=== PATIENT | male | born 1985 | race Caucasian/White ===

== ENCOUNTER 2016-12-25 20:45 | Emergency (ER) | payer MEDICAID ==
[2016-12-25 21:10] VITALS: BP 150/71
[2016-12-25] MEDS ORDERED: Oseltamivir 75 MG Cap PO ONE (22:05)
--- NOTE | 2016-12-25 22:09 | EDM.PDOC ---
ED HPI GENERAL MEDICAL PROBLEM - General Chief Complaint: Fever Stated Complaint: 103.4 TEMP Time Seen by Provider: 12/25/16 21:59 Source of Information: Reports: Patient, RN notes reviewed History Limitations: Reports: No limitations - History of Present Illness INITIAL COMMENTS - FREE TEXT/NARRATIVE: 31-year-old male presents emergency department day complaint of fever and body aches he did have a positive exposure to influenza B last week he's been ill for about 24 hours - Related Data Allergies Allergy/AdvReac Type Severity Reaction Status Date / Time No Known Allergies Allergy Verified 09/05/16 06:43 Home Meds: Home Meds Acetaminophen/oxyCODONE [Percocet 325-5 MG] 1 - 2 tab PO Q4H PRN #50 tablet 12/18 [Rx] Docusate Sodium [Colace] 100 mg PO BID #100 cap 09/06/16 [Rx] Pantoprazole [Protonix] 40 mg PO BEDTIME #90 tab.cr 09/06/16 [Rx] Past Medical History HEENT History: Reports: Impaired vision Gastrointestinal History: Reports: GERD Musculoskeletal History: Reports: Fracture Oncologic (Cancer) History: Reports: Colon, Other (see below) Other Oncologic History: tumor : non-malignant - Infectious Disease History Infectious Disease History: Reports: Chicken pox - Past Surgical History HEENT Surgical History: Reports: Oral surgery GI Surgical History: Reports: Colon, Hernia, abdominal, Hernia repair/other, Lysis of adhesions, Kristina fundoplication, Other (see below) Other GI Surgeries/Procedures: lap kristina 10/04/2015. 11 hernia repairs. 5 adhesions. colectomy 8 inches large intestine Musculoskeletal Surgical History: Reports: ORIF, Other (see below) Other Musculoskeletal Surgeries/Procedures:: left ankle Oncologic Surgical History: Reports: Other (see below) Other Oncologic Surgeries/Procedures: Benign pelvic tumor removal Social & Family History - Tobacco Use Smoking Status *Q: Current Every Day Smoker Years of Tobacco use: 16 Packs/Tins Daily: 1 Used Tobacco, but Quit: No Month Tobacco Last Used: Second Hand Smoke Exposure: No - Caffeine Use Caffeine Use: Reports: Soda - Alcohol Use Days Per Week of Alcohol Use: 3 Number of Drinks Per Day: 3 Total Drinks Per Week: 9 - Recreational Drug Use Recreational Drug Use: No ED ROS GENERAL - Review of Systems Review Of Systems: See Below Constitutional: Reports: fever, chills HEENT: Reports: No symptoms Respiratory: Reports: No Symptoms Cardiovascular: Reports: No symptoms GI/Abdominal: Reports: No symptoms : Reports: no symptoms Musculoskeletal: Reports: muscle pain ED EXAM, GENERAL - Physical Exam Exam: See Below Exam Limited By: No limitations General Appearance: alert, WD/WN, no apparent distress Respiratory/Chest: no respiratory distress, lungs clear, normal breath sounds, no accessory muscle use Cardiovascular: regular rate, rhythm, no murmur Course - Vital Signs Last Recorded V/S: Last Vital Signs Temp 99.3 F 12/25/16 21:09 Pulse 81 12/25/16 21:09 Resp 20 12/25/16 21:09 BP 150/71 H 12/25/16 21:09 Pulse Ox 95 12/25/16 21:09 Departure - Departure Time of Disposition: 22:08 Disposition: Home, Self-Care 01 Condition: good Clinical Impression: Influenza Forms: ED Department Discharge Additional Instructions: Take full course of medication, Please followup with your primary care provider in 3-5 days if not better, please call return to the emergency department with worsening of symptoms. - Assessment/Plan Plan: Assessment Acuity = acute Site and laterality = fever, chills, body ache Etiology = probable influenza B Manifestations = none Location of injury = home Lab values = none Plan Because of his exposure elected to treat empirically with Tamiflu 75 mg by mouth daily 1 doses given now prophylactic medication also given 2 family members Patient was in agreement with the plan all questions were answered, they were instructed to return to the emergency department or call for worsening symptoms. This note was dictated using [employer] voice recognition software please call with any questions.
== END 2016-12-25 22:15 | disposition home or self-care (01) ==
LOC: JP.ED 20:45
DX: J11.1 Influenza due to unidentified influenza virus with other respiratory manifestations (principal); K21.9 Gastro-esophageal reflux disease without esophagitis; F17.210 Nicotine dependence, cigarettes, uncomplicated; Z98.890 Other specified postprocedural states
CPT/HCPCS: 99283; A9270

== ENCOUNTER 2017-08-19 19:27 | Emergency (ER) | payer MEDICAID ==
[2017-08-19 19:58] VITALS: BP 136/75
[2017-08-19] MEDS ORDERED: Dexamethasone 4 MG/ML SDV PO ONE (20:10)
--- NOTE | 2017-08-19 20:15 | EDM.PDOC ---
ED HPI GENERAL MEDICAL PROBLEM - General Chief Complaint: ENT Problem Stated Complaint: SINUSES,THROAT Time Seen by Provider: 08/19/17 20:02 Source of Information: Reports: Patient, Family, RN Notes Reviewed History Limitations: Reports: No Limitations - History of Present Illness INITIAL COMMENTS - FREE TEXT/NARRATIVE: 32-year-old gentleman presents to emergency department today complaint of sore throat and sinus congestion, he was treated for sinus infection approximately one month ago with antibiotics he is not sure if it improved his symptoms or not. This particular event has been going on for 4 days he complains of sore throat postnasal drip no fevers and ongoing congestion sore throat Pain Score (Numeric/FACES): 7 - Related Data Allergies Allergy/AdvReac Type Severity Reaction Status Date / Time No Known Allergies Allergy Verified 08/19/17 19:40 Past Medical History HEENT History: Reports: Impaired Vision Gastrointestinal History: Reports: GERD Musculoskeletal History: Reports: Fracture, Other (See Below) Other Musculoskeletal History: left ankle Psychiatric History: Reports: ADHD Oncologic (Cancer) History: Reports: Colon, Other (See Below) Other Oncologic History: tumor : non-malignant - Infectious Disease History Infectious Disease History: Reports: Chicken Pox - Past Surgical History HEENT Surgical History: Reports: Oral Surgery GI Surgical History: Reports: Colon, Hernia, Abdominal, Hernia Repair/Other, Lysis of Adhesions, Osman Fundoplication, Other (See Below) Other GI Surgeries/Procedures: 8 inches of large intestine removed due to benign tumor Musculoskeletal Surgical History: Reports: ORIF Social & Family History - Tobacco Use Smoking Status *Q: Current Every Day Smoker Years of Tobacco use: 15 Packs/Tins Daily: 1.5 Used Tobacco, but Quit: No Month Tobacco Last Used: Second Hand Smoke Exposure: No - Caffeine Use Caffeine Use: Reports: Soda - Alcohol Use Days Per Week of Alcohol Use: 3 Number of Drinks Per Day: 3 Total Drinks Per Week: 9 - Recreational Drug Use Recreational Drug Use: Yes Drug Use in Last 12 Months: Yes Recreational Drug Type: Reports: Marijuana/Hashish Recreational Drug Use Frequency: Daily ED ROS ENT - Review of Systems Review Of Systems: See Below Constitutional: Denies: Fever, Chills HEENT: Reports: Throat Pain, Throat Swelling Respiratory: Reports: Cough Cardiovascular: Reports: No Symptoms GI/Abdominal: Reports: No Symptoms : Reports: No Symptoms ED EXAM, ENT - Physical Exam Exam: See Below Exam Limited By: No Limitations General Appearance: Alert, WD/WN, No Apparent Distress Ears: Normal External Exam, Normal Canal, Hearing Grossly Normal, Normal TMs Nose: Normal Inspection, Normal Mucousa, No Blood Mouth/Throat: Normal Inspection, Normal Gums, Normal Lips, Normal Oropharynx, Normal Teeth Head: Atraumatic, Normocephalic Neck: Normal Inspection, Supple, Non-Tender, Full Range of Motion Respiratory/Chest: No Respiratory Distress, Lungs Clear, Normal Breath Sounds, No Accessory Muscle Use Cardiovascular: Regular Rate, Rhythm, No Murmur Course - Vital Signs Last Recorded V/S: Last Vital Signs Temp 97.1 F 08/19/17 19:59 Pulse 84 08/19/17 19:59 Resp 17 08/19/17 19:59 BP 136/75 08/19/17 19:59 Pulse Ox 98 08/19/17 19:59 - Orders/Labs/Meds Meds: Medications Discontinued Medications Generic Name Dose Route Start Last Admin Trade Name Mark PRN Reason Stop Dose Admin Dexamethasone 8 mg 08/19/17 20:10 Dexamethasone PO 08/19/17 20:11 ONETIME ONE Departure - Departure Time of Disposition: 20:14 Disposition: Home, Self-Care 01 Condition: Good Clinical Impression: Sinusitis Qualifiers: Sinusitis location: maxillary Chronicity: acute Recurrence: recurrent Qualified Code(s): J01.01 - Acute recurrent maxillary sinusitis - Discharge Information Referrals: PCP,None [Primary Care Provider] - Additional Instructions: Try the Karmen Pot in combination with Claritin-D, Please followup with your primary care provider in 3-5 days if not better, please call return to the emergency department with worsening of symptoms. - Assessment/Plan Plan: Assessment Acuity = acute Site and laterality = sinusitis Etiology = probable viral cause Manifestations = pharyngitis Location of injury = Home Lab values = none Plan provided dexamethasone elixir 8 mg 1, recommend trying the Herald pot with Claritin-D follow-up with primary care 3-5 days for reevaluation Patient was in agreement with the plan all questions were answered, they were instructed to return to the emergency department or call for worsening symptoms. This note was dictated using [employer] voice recognition software please call with any questions.
== END 2017-08-19 20:21 | disposition home or self-care (01) ==
LOC: JP.ED 19:27
DX: J01.01 Acute recurrent maxillary sinusitis (principal); F17.210 Nicotine dependence, cigarettes, uncomplicated
CPT/HCPCS: 99283; J1100

== ENCOUNTER 2018-03-26 21:05 | Emergency (ER) | payer MEDICAID ==
[2018-03-26 22:24] VITALS: BP 131/76
--- NOTE | 2018-03-26 23:06 | EDM.PDOC ---
ED HPI GENERAL MEDICAL PROBLEM - General Chief Complaint: Respiratory Problem Stated Complaint: STUFFY NOSE Time Seen by Provider: 03/26/18 23:03 Source of Information: Reports: Patient, Family, RN Notes Reviewed History Limitations: Reports: No Limitations - History of Present Illness INITIAL COMMENTS - FREE TEXT/NARRATIVE: 32-year-old gentleman presents to the emergency department today with complaint of shortness of breath and cough he has been ill for about 4 days no fevers did have some exposure in a damp hotel room which may be contributing to the cause - Related Data Allergies Allergy/AdvReac Type Severity Reaction Status Date / Time bee venom protein (honey bee) Allergy Anaphylactic Verified 01/14/18 11:44 Shock Home Meds: Home Meds NK [No Known Home Meds] 01/14/18 [History] Past Medical History HEENT History: Reports: Impaired Vision Gastrointestinal History: Reports: GERD Musculoskeletal History: Reports: Fracture, Other (See Below) Other Musculoskeletal History: left ankle. L shoulder pain Psychiatric History: Reports: ADHD Oncologic (Cancer) History: Reports: Colon, Other (See Below) Other Oncologic History: tumor : non-malignant - Infectious Disease History Infectious Disease History: Reports: Chicken Pox - Past Surgical History HEENT Surgical History: Reports: Oral Surgery GI Surgical History: Reports: Colon, Hernia, Abdominal, Hernia Repair/Other, Lysis of Adhesions, Osman Fundoplication, Other (See Below) Other GI Surgeries/Procedures: 8 inches of large intestine removed due to benign tumor Musculoskeletal Surgical History: Reports: ORIF Dermatological Surgical History: Reports: Other (See Below) Social & Family History - Caffeine Use Caffeine Use: Reports: Coffee, Energy Drinks, Soda, Tea ED ROS GENERAL - Review of Systems Review Of Systems: See Below Constitutional: Denies: Fever, Chills HEENT: Reports: No Symptoms Respiratory: Reports: Shortness of Breath, Cough, Sputum Cardiovascular: Reports: Dyspnea on Exertion GI/Abdominal: Reports: No Symptoms ED EXAM, GENERAL - Physical Exam Exam: See Below Exam Limited By: No Limitations General Appearance: Alert, WD/WN, No Apparent Distress Respiratory/Chest: No Accessory Muscle Use, Rhonchi, Wheezing Cardiovascular: Regular Rate, Rhythm, No Murmur Course - Vital Signs Last Recorded V/S: Last Vital Signs Temp 97.5 F 03/26/18 22:23 Pulse 107 H 03/26/18 22:23 Resp 15 03/26/18 22:23 BP 131/76 03/26/18 22:23 Pulse Ox 95 03/26/18 22:23 Departure - Departure Time of Disposition: 23:06 Disposition: Home, Self-Care 01 Condition: Good Clinical Impression: Bilateral wheezing - Discharge Information Referrals: PCP,None [Primary Care Provider] - Additional Instructions: Take full course of prednisone, use albuterol inhaler as needed for shortness of breath, Please followup with your primary care provider in 3-5 days if not better, please call return to the emergency department with worsening of symptoms. - Assessment/Plan Plan: Assessment Acuity = acute Site and laterality = wheezing complicated gentleman with known history of COPD concern for exacerbation Etiology = probably viral etiology Manifestations = dyspnea Location of injury = Home Lab values = none Plan Elected to treat empirically with prednisone 20 mg once day 5 days, albuterol inhaler as needed for shortness breath follow-up primary care 3-5 days if no improvement This note was dictated using [employer] voice recognition software please call with any questions on syntax or grammar.
== END 2018-03-26 23:33 | disposition home or self-care (01) ==
LOC: JP.ED 21:05
DX: R06.2 Wheezing (principal); Z91.030 Bee allergy status
CPT/HCPCS: 99285

== ENCOUNTER 2018-05-10 07:03 | Inpatient (IN) | payer MEDICAID ==
[~2018-05-10 07:03] MED LIST: Acetaminophen 500 MG Tab PO ONE; Bupivacaine 0.5%/EPINEPHrine 1:200,000 50 ML MDV ONE; Celecoxib 200 MG Cap PO ONE; Dextrose 5%-Lactated Ringers 1,000 ML IV SCH; Gabapentin 300 MG Cap PO ONE; Meropenem 500 MG SDV ONE
[2018-05-10] MEDS ORDERED: fentaNYL 250 MCG/5 ML SDV ONE ×2 (07:12→08:57)
[2018-05-10] MEDS ORDERED: Ondansetron 4 MG/2 ML SDV ONE (07:14)
[2018-05-10] MEDS ORDERED: Propofol 200 MG/20 ML SDV ONE (07:14)
[2018-05-10] MEDS ORDERED: Dexamethasone 4 MG/ML SDV ONE (07:14)
[2018-05-10] MEDS ORDERED: Glycopyrrolate 0.2 MG/ML 5 ML MDV ONE (07:14)
[2018-05-10] MEDS ORDERED: Rocuronium 50 MG/5 ML Vial ONE (07:14)
[2018-05-10] MEDS ORDERED: Neostigmine Methylsulfate 1 MG/ML 5 ML Syringe ONE (07:14)
[2018-05-10] MEDS ORDERED: HYDROmorphone/Normal Saline 15 MG/30 ML PCA IV PRN (07:26)
[2018-05-10] MEDS ORDERED: Naloxone 0.4 MG/ML SDV IVPUSH PRN (07:26)
[2018-05-10] MEDS ORDERED: Albuterol/Ipratropium 3.0-0.5 MG/3 ML Neb Soln NEB ONE (08:20)
[2018-05-10] MEDS ORDERED: ceFAZolin 2 GM in Premix Bag 1 BAG IV ONE (08:45)
[2018-05-10] MEDS ORDERED: Ketamine 500 MG/5 ML MDV IV SCH (09:00)
[2018-05-10] MEDS ORDERED: Ropivacaine 39 ML, Dexamethasone 8 MG, EPINEPHrine 0.4 MG, Sodium Chloride 0.9% 38.6 ML NERVRT SCH ×4 (09:00)
[2018-05-10] MEDS ORDERED: Linezolid 200 MG/100 ML Bag IRR ONE (09:24)
[2018-05-10] MEDS ORDERED: Ketorolac 60 MG/2 ML SDV IM ONE (10:08)
[2018-05-10] MEDS ORDERED: Naloxone 0.4 MG/ML SDV IV PRN (11:53)
[2018-05-10] MEDS ORDERED: Ondansetron 4 MG/2 ML SDV IVPUSH PRN (12:21)
[2018-05-10] MEDS ORDERED: Albuterol/Ipratropium 3.0-0.5 MG/3 ML Neb Soln INH PRN (13:00)
[2018-05-10] MEDS ORDERED: Nicotine 21 MG/24 Hr Patch TRDERM SCH (13:00)
[2018-05-10] MEDS: Dextrose 5%-Lactated Ringers 1,000 ML IV SCH ×2 (14:03→21:06)
[2018-05-10] MEDS: Albuterol/Ipratropium 3.0-0.5 MG/3 ML Neb Soln INH SCH ×2 (14:58→21:28)
[2018-05-10] MEDS: ceFAZolin 2 GM in Premix Bag 1 BAG IV SCH ×2 (15:58→23:18)
[2018-05-10] MEDS: Ibuprofen 600 MG Tab PO SCH ×2 (16:01→21:27)
[2018-05-10] MEDS ORDERED: diphenhydrAMINE 50 MG/ML SDV IVPUSH PRN (21:23)
[2018-05-10] MEDS: Acetaminophen/oxyCODONE 325-5 MG Tab PO PRN (21:26)
[2018-05-11] MEDS: Acetaminophen/oxyCODONE 325-5 MG Tab PO PRN ×2 (02:35→07:38)
[2018-05-11] MEDS: Ibuprofen 600 MG Tab PO SCH (03:34)
[2018-05-11] MEDS: Dextrose 5%-Lactated Ringers 1,000 ML IV SCH (05:08)
[2018-05-11] MEDS: Albuterol/Ipratropium 3.0-0.5 MG/3 ML Neb Soln INH SCH (07:17)
[2018-05-11] MEDS: ceFAZolin 2 GM in Premix Bag 1 BAG IV SCH (07:39)
[2018-05-11 08:04] VITALS: BP 117/62
[2018-05-11] MEDS ORDERED: Magnesium Hydroxide 400 MG/5 ML Susp 30 ML Cup PO PRN (08:52)
--- NOTE | 2018-05-13 09:02 | DISCH ---
FINAL DIAGNOSES: 1. Recurrent incarcerated incisional hernia. 2. Intraperitoneal foreign bodies (tags). SECONDARY DIAGNOSIS: Gastroesophageal reflux disease, status post previous Osman fundoplication. OPERATIVE PROCEDURES: Done on 05/10/2018, limited laparotomy with: 1. Repair of recurrent incarcerated incisional hernia with mesh. 2. Removal of intraperitoneal foreign bodies (tags). SUMMARY: This is a 32-year-old, presenting with a recurrent incisional hernia located in the epigastric area. On the day of admission, the patient underwent exploration and repair of the hernia. Some intraperitoneal tags were present, which were removed concurrently. Postoperatively, he has had no major problems, tolerating a regular diet, and will be sent home with Percocet 5/325 one to two tablets q.4 h. p.r.n. pain #50 and 2 doses of milk of magnesia to take p.r.n. He has nicotine patch on, which he will be instructed to remove when he starts smoking again. The patient has had multiple recurrences of these incisional hernias, and he will be instructed to avoid lifting, pushing, pulling greater than 10 pounds for 6 weeks to try to allow the muscular layers to heal well. He will be following up with Lyndsay Brown at [facility] on 05/20/2018.
--- NOTE | 2018-05-17 13:44 | OR ---
DATE OF PROCEDURE: 05/10/2018 PREOPERATIVE DIAGNOSIS: Recurrent incisional hernia. POSTOPERATIVE DIAGNOSES: 1. Recurrent incarcerated incisional hernia. 2. Several intraabdominal foreign bodies (previous titanium tacks). OPERATIVE PROCEDURES: 1. Limited laparotomy with;. a. Repair of recurrent incarcerated incisional hernia with mesh (22131, [id number]). 2. Removal of intraperitoneal foreign bodies (titanium tacks) (72752). ANESTHESIA: General. CLASSIFICATION INSPECTOR: Lyndsay Brown PA-C. INDICATION FOR PROCEDURE: The patient presents with symptomatic recurrent incisional hernia. The plan is to proceed with repair of this using a mesh technique. Potential risks including bleeding, infection, injury to underlying viscera, problems with mesh becoming infected, or the hernia recurring were all reviewed, and the patient wishes to proceed. DETAILS OF PROCEDURE: The patient was taken to the operating room and after general endotracheal anesthesia was induced, bilateral subcostal transversus abdominis plane blocks were placed using continuous ultrasound guidance. Following this, the abdomen was prepped and draped. Elizabeth catheter was inserted, which was removed at the end of the procedure. The upper aspect of the upper midline incision was then reused and carried down through the skin and subcutaneous tissue. The area of herniation was then identified. There was more or less intact mesh underneath this, but this had become quite mobile. This was then opened up. It had some incarcerated component to it with some omentum and falciform ligament adherent within the hernia. This mesh was then tightened up with a #2-0 Prolene stitch. During the course of dissection of this mesh, several intraperitoneal titanium tacks were present, which were felt to be potentially problematic over time, and these were removed as they were encountered. A plane of polypropylene mesh was then placed underneath the defect and sutured to the underside of the abdominal wall circumferentially with 0 Vicryl sutures. Once this was completed, the primary fascia closure was completed with a #2 Vicryl stitch. The subcutaneous tissue was then closed with 2 layers of 3-0 Vicryl stitch and skin with rancho. The incision was then anesthetized with some 0.5% Marcaine as well, and the patient was taken to the recovery room in a satisfactory condition. Physician special ed assistant, Lyndsay Brown, played an essential role in assisting in this case, helping to position the patient, retract structures as needed, as well as suturing and cutting sutures when indicated. Her presence improved patient safety and decreased the operative time. German Palomares MD /[id number]
== END 2018-05-11 08:57 | disposition home or self-care (01) | DRG 355 ==
LOC: JP.SDS 07:03 → EDSTATUS 09:00 → JP.MS 10:00 → JP.2SS 10:05
PROVIDERS: ADMIT Surgery; ATTEND Surgery
PROC: 0WUF0JZ Supplement Abdominal Wall with Synthetic Substitute, Open Approach (ICD-10-PCS; principal; 2018-05-10)
PROC: 0JC80ZZ Extirpation of Matter from Abdomen Subcutaneous Tissue and Fascia, Open Approach (ICD-10-PCS; 2018-05-10)
PROC: 3E0T3BZ Introduction of Anesthetic Agent into Peripheral Nerves and Plexi, Percutaneous Approach (ICD-10-PCS; 2018-05-10)
DX: K43.0 Incisional hernia with obstruction, without gangrene (principal); L91.8 Other hypertrophic disorders of the skin; K21.9 Gastro-esophageal reflux disease without esophagitis; M79.5 Residual foreign body in soft tissue
CPT/HCPCS: 88300; 88302; 94640; 94762; A9270-GY; C1781; J0171; J0690; J1100; J1170; J1200; J1885; J2020; J2185; J2405; J2704; J2710; J2795; J3010; J3490; J7030; J7042; J7050; J7620-GY

== ENCOUNTER 2018-11-28 07:49 | Inpatient (IN) | payer MEDICAID ==
[2018-11-28] MEDS ORDERED: Dextrose 5%-Lactated Ringers 1,000 ML IV SCH (08:15)
[2018-11-28] MEDS ORDERED: Bupivacaine 0.5% 50 ML MDV ONE (08:39)
[2018-11-28] MEDS ORDERED: Lidocaine 1% with EPINEPHrine 1:100,000 50 ML MDV ONE (08:40)
[2018-11-28] MEDS ORDERED: fentaNYL 100 MCG/2 ML SDV ONE ×2 (08:40→11:56)
[2018-11-28] MEDS ORDERED: Propofol 200 MG/20 ML SDV ONE ×2 (08:41→10:17)
[2018-11-28] MEDS ORDERED: Midazolam 1 MG/ML 2 ML SDV ONE (08:41)
[2018-11-28] MEDS ORDERED: ceFAZolin 2 GM in Premix Bag 1 BAG IV ONE (09:00)
[2018-11-28] MEDS ORDERED: Succinylcholine 200 MG/10 ML MDV ONE ×2 (10:35→12:10)
[2018-11-28] MEDS ORDERED: Dexamethasone 4 MG/ML SDV ONE (10:35)
[2018-11-28] MEDS ORDERED: Glycopyrrolate 0.2 MG/ML 5 ML MDV ONE (10:35)
[2018-11-28] MEDS ORDERED: fentaNYL 250 MCG/5 ML SDV ONE (10:35)
[2018-11-28] MEDS ORDERED: Ondansetron 4 MG/2 ML SDV ONE (10:35)
[2018-11-28] MEDS ORDERED: Rocuronium 50 MG/5 ML Vial ONE ×2 (10:35→10:59)
[2018-11-28] MEDS ORDERED: Neostigmine Methylsulfate 1 MG/ML 5 ML Syringe ONE ×2 (10:35→10:59)
[2018-11-28] MEDS ORDERED: Ropivacaine 38 ML, Dexamethasone 8 MG, EPINEPHrine 0.4 MG, Sodium Chloride 0.9% 39.6 ML NERVRT SCH ×4 (11:00)
[2018-11-28] MEDS ORDERED: Atropine 0.1 MG/ML 10 ML Syringe ONE (11:00)
[2018-11-28] MEDS ORDERED: Meropenem 500 MG SDV ONE (11:03)
[2018-11-28] MEDS: Meropenem 500 MG SDV ONE ×2 (11:11→11:38)
[2018-11-28] MEDS ORDERED: Linezolid 600 MG in Premix Bag 1 BAG IV ONE (11:15)
[2018-11-28] MEDS ORDERED: Labetalol 20 MG/4 ML Syringe ONE (12:08)
[2018-11-28] MEDS ORDERED: Naloxone 0.4 MG/ML SDV IVPUSH PRN (12:12)
[2018-11-28] MEDS ORDERED: Naloxone 0.4 MG/ML SDV IV PRN (12:14)
[2018-11-28] MEDS: HYDROmorphone/Normal Saline 15 MG/30 ML PCA IV PRN (12:20)
[2018-11-28] MEDS: Cyclobenzaprine 10 MG Tab PO PRN (14:01)
[2018-11-28] MEDS: hydrOXYzine HCl 100 MG/2 ML SDV IM PRN ×2 (14:01→22:19)
[2018-11-28] MEDS: Dextrose 5%-Lactated Ringers 1,000 ML IV SCH ×2 (15:25→21:23)
[2018-11-28] MEDS: Meropenem 500 MG in Sodium Chloride 0.9% 50 ML IV SCH ×2 (16:08→21:23)
[2018-11-28] MEDS: Pantoprazole 40 MG Vial IV SCH (16:08)
[2018-11-28] MEDS: Acetaminophen 500 MG Tab PO SCH ×2 (17:45→23:04)
[2018-11-28] MEDS: Linezolid 600 MG in Premix Bag 1 BAG IV SCH (22:02)
[2018-11-29] MEDS: Cyclobenzaprine 10 MG Tab PO PRN ×3 (01:56→23:06)
[2018-11-29] MEDS: Meropenem 500 MG in Sodium Chloride 0.9% 50 ML IV SCH ×4 (03:43→22:25)
[2018-11-29] MEDS: Dextrose 5%-Lactated Ringers 1,000 ML IV SCH (05:29)
[2018-11-29] MEDS: Acetaminophen 500 MG Tab PO SCH ×4 (05:31→23:06)
[2018-11-29] MEDS: HYDROmorphone/Normal Saline 15 MG/30 ML PCA IV PRN ×2 (07:03→22:38)
[2018-11-29] MEDS ORDERED: Tap Block 1 ML BAG NERVRT SCH (07:30)
--- NOTE | 2018-11-29 08:12 | PN ---
DATE OF SERVICE: 11/29/2018 SUBJECTIVE: Chato is postoperative day #1. He states pain is controlled. His biggest concern is that he is hungry, would like to eat. REVIEW OF SYSTEMS: Remainder of review of systems negative for any pertinent positives and negatives. OBJECTIVE: GENERAL: Chato Mackenzie is a 33-year-old male. Alert, orientated. VITAL SIGNS: TPR 98.1, 75, 16, blood pressure 116/76. HEENT: Negative. NECK: Supple. HEART: Regular rate and rhythm. LUNGS: Clear. ABDOMEN: Dressings dry and intact. Abdominal binder is on. EXTREMITIES: Without peripheral edema. ASSESSMENT: Exploratory laparotomy with: 1. Removal of intraabdominal mesh. 2. Debridement of effusion around abscess. 3. Drainage of intraabdominal subcutaneous abscess. 4. Small-bowel resection. 5. Placement of Vicryl mesh. Date of surgery: 11/28/2018. Surgeon: German Palomares MD. PLAN: 1. Schedule and have consent signed for delayed primary closure in a.m., Sunday11/30/2018, IV, local sedation and tap block. German Palomares MD. N.p.o. after midnight. 2. Full liquid diet. 3. Decrease IV to 100 mL per hour. 4. N.p.o. after midnight. 5. We will evaluate p.r.n. or in a.m. Lyndsay Brown PA-C /[id number]
[2018-11-29] MEDS: Linezolid 600 MG in Premix Bag 1 BAG IV SCH ×2 (11:52→23:06)
[2018-11-29] MEDS: diphenhydrAMINE 50 MG/ML SDV IVPUSH PRN (14:51)
[2018-11-29] MEDS: Pantoprazole 40 MG Vial IV SCH (14:58)
[2018-11-30] MEDS: diphenhydrAMINE 50 MG/ML SDV IVPUSH PRN (02:42)
[2018-11-30] MEDS: Meropenem 500 MG in Sodium Chloride 0.9% 50 ML IV SCH ×4 (03:32→21:10)
[2018-11-30] MEDS: Acetaminophen 500 MG Tab PO SCH ×3 (05:05→18:20)
[2018-11-30] MEDS: Dextrose 5%-Lactated Ringers 1,000 ML IV SCH ×2 (06:08→10:06)
[2018-11-30] MEDS ORDERED: Bupivacaine 0.5% 50 ML MDV ONE (06:40)
[2018-11-30] MEDS ORDERED: Lidocaine 1% with EPINEPHrine 1:100,000 50 ML MDV ONE (06:40)
[2018-11-30] MEDS ORDERED: Meropenem 500 MG SDV ONE (06:40)
[2018-11-30] MEDS ORDERED: Ropivacaine 38 ML, Dexamethasone 8 MG, EPINEPHrine 0.4 MG, Sodium Chloride 0.9% 39.6 ML NERVRT SCH ×4 (07:30)
[2018-11-30] MEDS ORDERED: Midazolam 1 MG/ML 2 ML SDV ONE (08:04)
[2018-11-30] MEDS ORDERED: Propofol 200 MG/20 ML SDV ONE ×2 (08:04→08:54)
[2018-11-30] MEDS ORDERED: fentaNYL 100 MCG/2 ML SDV ONE (08:04)
[2018-11-30] MEDS ORDERED: Sodium Chloride 0.9% 10 ML ONE (08:40)
[2018-11-30] MEDS ORDERED: Lidocaine 1% 2 ML ONE (08:40)
[2018-11-30] MEDS: Cyclobenzaprine 10 MG Tab PO PRN ×2 (11:06→17:35)
[2018-11-30] MEDS: Linezolid 600 MG in Premix Bag 1 BAG IV SCH ×2 (12:19→22:44)
[2018-11-30] MEDS: Bisacodyl 5 MG Tab PO SCH ×2 (14:42→20:42)
[2018-11-30] MEDS: Pantoprazole 40 MG Vial IV SCH (14:45)
[2018-11-30] MEDS: Acetaminophen/oxyCODONE 325-5 MG Tab PO PRN (21:23)
[2018-12-01] MEDS: Acetaminophen 500 MG Tab PO SCH (00:55)
[2018-12-01] MEDS: Acetaminophen/oxyCODONE 325-5 MG Tab PO PRN ×4 (01:05→13:58)
[2018-12-01] MEDS: Meropenem 500 MG in Sodium Chloride 0.9% 50 ML IV SCH (04:13)
[2018-12-01] MEDS: Ondansetron 4 MG/2 ML SDV IVPUSH PRN ×3 (04:34→21:51)
[2018-12-01] MEDS: hydrOXYzine HCl 100 MG/2 ML SDV IM PRN (04:36)
[2018-12-01] MEDS: Magnesium Hydroxide 400 MG/5 ML Susp 30 ML Cup PO SCH ×2 (09:04→21:55)
[2018-12-01] MEDS: Bisacodyl 5 MG Tab PO SCH ×2 (09:04→21:55)
[2018-12-01] MEDS: Linezolid 600 MG in Premix Bag 1 BAG IV SCH ×2 (11:10→22:01)
[2018-12-01] MEDS: Bisacodyl 10 MG Supp RECTAL PRN ×2 (11:17→13:47)
[2018-12-01] MEDS: Cyclobenzaprine 10 MG Tab PO PRN (11:17)
--- NOTE | 2018-12-01 12:39 | PN ---
DATE OF SERVICE: 12/01/2018 The patient has been afebrile with stable vital signs. The main problem is some cramping pain. As he has not moved his bowels, we will give him some additional bowel stimulation today. His cultures thus far are not growing anything, which would make it likely we are dealing with Staph epi type infection. I think we can discontinue the meropenem at this point, continue the Zyvox pending further C and S results. We will encourage decreased oral intake today until bowels get moving. Otherwise, maximize activity and work with pulmonary toilet. German Palomares MD /[id number]
--- NOTE | 2018-12-01 12:52 | PN ---
DATE OF SERVICE: 11/30/2018 The patient has been afebrile with stable vital signs. No major problems were noted, still not passing gas or had a bowel movement. We will begin some bowel stimulation today. Otherwise, keep him on just some sips of clear liquids. He did have closure of his abdominal wound today without incident. Cultures thus far are not growing anything out, but I suspect we may be dealing with Staph epi type infection in the graft with this organism being notoriously somewhat difficult to grow out. Anyway, we will continue to give the present antibiotics. If yet in another day or two, nothing grows out, we will simplify this down to some primarily staph coverage. German Palomares MD /[id number]
[2018-12-01] MEDS: Pantoprazole 40 MG Vial IV SCH (16:50)
[2018-12-01] MEDS: Metoclopramide 10 MG/2 ML SDV IV SCH ×2 (17:38→23:34)
[2018-12-01] MEDS: Dextrose 5%-Lactated Ringers 1,000 ML IV SCH (17:38)
[2018-12-01] MEDS: HYDROmorphone/Normal Saline 15 MG/30 ML PCA IV PRN (17:54)
[2018-12-02] MEDS ORDERED: Magnesium Hydroxide 400 MG/5 ML Susp 30 ML Cup PO PRN (01:29)
[2018-12-02] MEDS: Dextrose 5%-Lactated Ringers 1,000 ML IV SCH ×3 (05:17→23:09)
[2018-12-02] MEDS: Metoclopramide 10 MG/2 ML SDV IV SCH ×4 (05:25→23:12)
[2018-12-02] MEDS: Bisacodyl 5 MG Tab PO SCH ×2 (08:45→20:52)
[2018-12-02] MEDS ORDERED: Ciprofloxacin 500 MG Tab PO SCH (09:30)
[2018-12-02] MEDS: Ciprofloxacin in D5W 400 MG in Premix Bag 1 BAG IV SCH ×4 (10:28→20:52)
--- NOTE | 2018-12-02 10:43 | PN ---
DATE OF SERVICE: 12/02/2018 SUBJECTIVE: Chato has had less nausea, less bloating. He is passing some flatus. Vital signs have been stable and pain has been controlled. OBJECTIVE: GENERAL: Chato Mackenzie is a 33-year-old male. VITAL SIGNS: TPR is 98.1, 95, 18, blood pressure 143/99. HEENT: Negative. NECK: Supple. HEART: Regular rate and rhythm. LUNGS: Clear. ABDOMEN: Aquacel dressings on. No abdominal binder. EXTREMITIES: Without peripheral edema. ASSESSMENT: Exploratory laparotomy with: 1. Removal of intraperitoneal mesh. 2. Debridement of effusion around abscess. 3. Drainage of intraabdominal subcutaneous abscess. 4. Small bowel resection. 5. Placement of Vicryl mesh. Date of surgery: 11/28/2018. Surgeon: German Palomares MD. 6. Culture returned Staphylococcus aureus. PLAN: 1. Discontinue Zyvox. 2. Cipro 500 mg q.12 hours IV. 3. Good pulmonary toilet. 4. We will evaluate p.r.n. or in a.m. Lyndsay Brown PA-C /[id number]
[2018-12-02] MEDS: Erythromycin Ethylsuccinate Susp 200 MG/5 ML 100 ML Bottle PO SCH ×3 (12:13→22:13)
[2018-12-02] MEDS: Bisacodyl 10 MG Supp RECTAL PRN ×2 (12:14→22:08)
[2018-12-02] MEDS: Pantoprazole 40 MG Vial IV SCH (15:28)
[2018-12-03] MEDS: HYDROmorphone/Normal Saline 15 MG/30 ML PCA IV PRN (03:47)
[2018-12-03] MEDS: Metoclopramide 10 MG/2 ML SDV IV SCH (07:52)
[2018-12-03] MEDS ORDERED: Sodium Chloride 0.9% 10 ML Syringe IV PRN (07:53)
[2018-12-03] MEDS: Erythromycin Ethylsuccinate Susp 200 MG/5 ML 100 ML Bottle PO SCH ×4 (07:53→21:36)
[2018-12-03] MEDS: Ibuprofen 600 MG Tab PO SCH ×3 (09:18→20:07)
[2018-12-03] MEDS: Acetaminophen/oxyCODONE 325-5 MG Tab PO PRN ×3 (09:20→21:36)
[2018-12-03] MEDS: Ciprofloxacin in D5W 400 MG in Premix Bag 1 BAG IV SCH ×2 (09:20)
[2018-12-03] MEDS: Bisacodyl 5 MG Tab PO SCH (09:21)
[2018-12-03] MEDS ORDERED: Ondansetron 4 MG Tab.DIS PO PRN (10:08)
[2018-12-03] MEDS ORDERED: diphenhydrAMINE 25 MG Cap PO PRN (10:09)
[2018-12-03] MEDS: Ciprofloxacin 500 MG Tab PO SCH ×2 (11:09→20:07)
[2018-12-03] MEDS: Metoclopramide 10 MG Tab PO SCH ×2 (13:36→20:07)
[2018-12-03] MEDS ORDERED: Pantoprazole 40 MG Tab.CR PO SCH (16:30)
[2018-12-04] MEDS: Acetaminophen/oxyCODONE 325-5 MG Tab PO PRN ×2 (03:08→08:32)
[2018-12-04] MEDS: Ibuprofen 600 MG Tab PO SCH ×2 (03:09→08:28)
[2018-12-04] MEDS: Metoclopramide 10 MG Tab PO SCH ×2 (03:10→08:28)
[2018-12-04] MEDS: Erythromycin Ethylsuccinate Susp 200 MG/5 ML 100 ML Bottle PO SCH (05:51)
[2018-12-04 07:09] VITALS: BP 139/85
--- NOTE | 2018-12-04 08:26 | PCM.HP ---
H&P History of Present Illness - General Date of Service: 11/29/18 Admit Problem/Dx: Admission Diagnosis/Problem Admission Diagnosis/Problem Abdominal pain in male Source of Information: Patient History Limitations: Reports: No Limitations - History of Present Illness Initial Comments - Free Text/Narative: Chato was admitted for a Same Day Surgery but Surgery was complicated due to intra abdominal abscess. He had a Laparotomy and admitted for inpatient after surgical procedure on . Location: Reports: Abdomen (seroma thought to be over abdominal mesh ) Associated Symptoms: Reports: No Other Symptoms Abdomen Pain Score (Numeric/FACES): 5 - Related Data Allergies/Adverse Reactions: Allergies Allergy/AdvReac Type Severity Reaction Status Date / Time bee venom protein (honey bee) Allergy Severe Anaphylactic Verified 07/13/18 21: 21 Shock Home Medications: Home Meds Non-Formulary Medication [NF Drug] 1 inh PO ASDIRECTED 11/29/18 [History] Acetaminophen/oxyCODONE [Percocet 325-5 MG] 1 tab PO Q4HR PRN #42 tablet [Rx] Ciprofloxacin [Ciprofloxacin HCl] 500 mg PO BID #14 tablet 12/04/18 [Rx] Ibuprofen [Motrin] 600 mg PO Q6H #40 tablet 12/04/18 [Rx] Past Medical History HEENT History: Reports: Impaired Vision Gastrointestinal History: Reports: GERD Musculoskeletal History: Reports: Fracture, Other (See Below) Other Musculoskeletal History: left ankle. L shoulder pain Psychiatric History: Reports: ADHD Oncologic (Cancer) History: Reports: Colon, Other (See Below) Other Oncologic History: tumor : non-malignant - Infectious Disease History Infectious Disease History: Reports: Chicken Pox - Past Surgical History Head Surgeries/Procedures: Reports: None HEENT Surgical History: Reports: Oral Surgery GI Surgical History: Reports: Colon, Hernia, Abdominal, Hernia Repair/Other, Lysis of Adhesions, Osman Fundoplication, Other (See Below) Other GI Surgeries/Procedures: 8 inches of large intestine removed due to benign tumor,. SEROMA REMOVED AROUND ABD MESH Musculoskeletal Surgical History: Reports: ORIF Oncologic Surgical History: Reports: None Dermatological Surgical History: Reports: None Social & Family History - Family History Family Medical History: Noncontributory - Tobacco Use Smoking Status *Q: Current Every Day Smoker Years of Tobacco use: 20 Packs/Tins Daily: 1 Used Tobacco, but Quit: No Second Hand Smoke Exposure: Yes - Caffeine Use Caffeine Use: Reports: Soda Caffeine Use Comment: occ pop - Recreational Drug Use Recreational Drug Use: Yes Drug Use in Last 12 Months: Yes Recreational Drug Type: Reports: Marijuana/Hashish Recreational Drug Use Frequency: Daily H&P Review of Systems - Review of Systems: Review Of Systems: ROS reveals no pertinent complaints other than HPI. Exam - Exam Exam: See Below - Vital Signs Vital Signs: Last Vital Signs Temp 99.2 F 12/04/18 07:07 Pulse 92 12/04/18 07:07 Resp 16 12/04/18 07:07 BP 139/85 12/04/18 07:07 Pulse Ox 97 12/04/18 07:07 Weight: 168 lb 0.017 oz - Exam Quality Assessment: DVT Prophylaxis General: Alert, Oriented, Cooperative HEENT: PERRLA Neck: Supple, Trachea Midline Lungs: Clear to Auscultation, Normal Respiratory Effort Cardiovascular: Regular Rate, Regular Rhythm GI/Abdominal Exam: Other (ventral incisional swelling ) (Male) Exam: Deferred Rectal (Males) Exam: Deferred Back Exam: Normal Inspection, Full Range of Motion Extremities: Normal Inspection, Normal Range of Motion Skin: Warm, Dry, Intact Neurological: Cranial Nerves Intact, Reflexes Equal Bilateral Neuro Extensive - Mental Status: Alert, Oriented x3, Normal Mood/Affect Neuro Extensive - Motor, Sensory, Reflexes: CN II-XII Intact Psychiatric: Alert, Normal Affect, Normal Mood - Patient Data Result Diagrams: 11/28/18 08:43 11/28/18 08:43 - Problem List (1) Status post small bowel resection SNOMED Code(s): 141556175221939, 676189745, 470852888075750 ICD Code: Z90.49 - ACQUIRED ABSENCE OF OTHER SPECIFIED PARTS OF DIGESTIVE TRACT Status: Acute Current Visit: Yes (2) Status post exploratory laparotomy SNOMED Code(s): 271206814, 23922198, 911933752 ICD Code: Z98.890 - OTHER SPECIFIED POSTPROCEDURAL STATES Status: Acute Current Visit: Yes Problem Details: remoavla mesh, debridement of fascia abcess, drainage of intraabdominal abcess placemtn of vicryl mesh (3) GERD (gastroesophageal reflux disease) SNOMED Code(s): 120353360 ICD Code: K21.9 - GASTRO-ESOPHAGEAL REFLUX DISEASE WITHOUT ESOPHAGITIS Status: Chronic Current Visit: No (4) Tobacco user SNOMED Code(s): 231669594 ICD Code: Z72.0 - TOBACCO USE Status: Chronic Priority: Medium Current Visit: No (5) COPD, Mild chronic obstructive pulmonary disease SNOMED Code(s): 580032299 ICD Code: J44.9 - CHRONIC OBSTRUCTIVE PULMONARY DISEASE, UNSPECIFIED Status : Chronic Priority: Low Current Visit: No Problem List Initiated/Reviewed/Updated: Yes Orders Last 24hrs: Active Orders 24 hr Category Date Time Status Ready for Discharge [RC] PER UNIT ROUTINE Care 12/04/18 07:27 Active Ciprofloxacin [Ciprofloxacin HCl] Med 12/03/18 10:00 Active 500 mg PO BID Erythromycin Ethylsuccinate [Eryped 200] Med 12/03/18 16:00 Active 250 mg PO QID Ibuprofen [Motrin] Med 12/03/18 08:00 Active 600 mg PO Q6H Metoclopramide [Reglan] Med 12/03/18 14:00 Active 10 mg PO Q6H Ondansetron [Zofran ODT] Med 12/03/18 10:08 Active 4 mg PO Q4H PRN Pantoprazole [ProTONIX] Med 12/03/18 16:30 Active 40 mg PO Q24H diphenhydrAMINE [Benadryl] Med 12/03/18 10:09 Active 25 mg PO Q4H PRN Convert IV to Saline Lock [OM.PC] Routine Oth 12/03/18 07:51 Ordered Remove Dressing [OM.PC] Routine Oth 12/04/18 08:01 Ordered Medication Orders Bisacodyl (Dulcolax) 10 mg RECTAL ASDIRECTED PRN PRN Reason: CONSTIPATION Last Admin: 12/02/18 22:08 Dose: 10 mg Admin: 12/02/18 12:14 Dose: 10 mg Admin: 12/01/18 13:47 Dose: 10 mg Ciprofloxacin (Ciprofloxacin Hcl) 500 mg PO BID MARCE Last Admin: 12/03/18 20:07 Dose: 500 mg Admin: 12/03/18 11:09 Dose: 500 mg Cyclobenzaprine HCl (Flexeril) 10 mg PO Q6H PRN PRN Reason: Spasms Last Admin: 12/01/18 11:17 Dose: 10 mg Admin: 11/30/18 17:35 Dose: 10 mg Admin: 11/30/18 11:06 Dose: 10 mg Admin: 11/29/18 23:06 Dose: 10 mg Admin: 11/29/18 08:42 Dose: 10 mg Diphenhydramine HCl (Benadryl) 25 mg PO Q4H PRN PRN Reason: Itching Erythromycin Ethylsuccinate (Eryped 200) 250 mg PO QID [facility] Last Admin: 12/04/18 05:51 Dose: 250 mg Admin: 12/03/18 21:36 Dose: 250 mg Admin: 12/03/18 16:34 Dose: 250 mg Hydroxyzine HCl (Vistaril) 100 mg IM Q4H PRN PRN Reason: PAIN Last Admin: 12/01/18 04:36 Dose: 100 mg Admin: 11/28/18 22:19 Dose: 100 mg Admin: 11/28/18 14:01 Dose: 100 mg Ibuprofen (Motrin) 600 mg PO Q6H [facility] Last Admin: 12/04/18 03:09 Dose: 600 mg Admin: 12/03/18 20:07 Dose: 600 mg Admin: 12/03/18 13:35 Dose: 600 mg Admin: 12/03/18 09:18 Dose: 600 mg Magnesium Hydroxide (Milk Of Magnesia) 30 ml PO BID PRN PRN Reason: Constipation Last Admin: 12/02/18 01:46 Dose: 30 ml Metoclopramide HCl (Reglan) 10 mg PO Q6H [facility] Last Admin: 12/04/18 03:10 Dose: Not Given Admin: 12/03/18 20:07 Dose: 10 mg Admin: 12/03/18 13:36 Dose: 10 mg Ondansetron HCl (Zofran Odt) 4 mg PO Q4H PRN PRN Reason: Nausea/Vomiting Oxycodone/Acetaminophen (Percocet 325-5 Mg) 1 tab PO Q3H PRN PRN Reason: Pain Last Admin: 12/04/18 03:08 Dose: 1 tab Admin: 12/03/18 21:36 Dose: 1 tab Admin: 12/03/18 13:34 Dose: 1 tab Admin: 12/03/18 09:20 Dose: 1 tab Admin: 12/01/18 13:58 Dose: 1 tab Admin: 12/01/18 09:04 Dose: 1 tab Admin: 12/01/18 04:13 Dose: 1 tab Admin: 12/01/18 01:05 Dose: 1 tab Admin: 11/30/18 21:23 Dose: 1 tab Pantoprazole Sodium (Protonix) 40 mg PO Q24H MARCE Last Admin: 12/03/18 16:34 Dose: 40 mg Senna/Docusate Sodium (Senna Plus) 2 tab PO BID MARCE Last Admin: 12/03/18 20:07 Dose: 2 tab Admin: 12/03/18 09:21 Dose: 2 tab Admin: 12/02/18 20:51 Dose: 2 tab Admin: 12/02/18 08:45 Dose: 2 tab Admin: 12/01/18 21:55 Dose: 2 tab Admin: 12/01/18 09:04 Dose: 2 tab Admin: 11/30/18 20:42 Dose: 2 tab Admin: 11/30/18 14:42 Dose: 2 tab Assessment/Plan Comment:: Assessment: Exploratory Laparotomy Plan: Admit to Inpatient Lyndsay Alonso
[2018-12-04] MEDS: Ciprofloxacin 500 MG Tab PO SCH (08:28)
--- NOTE | 2018-12-04 09:00 | DISCH ---
ADMISSION DIAGNOSES: 1. Seroma abdominal wall, overlying mesh. 2. Gastroesophageal reflux disease. DISCHARGE DIAGNOSES: 1. Exploratory laparotomy with: a. Removal of intraperitoneal mesh. b. Debridement of effusion around abscess. c. Drainage of intraabdominal subcutaneous abscess. d. Small-bowel resection. e. Placement of Vicryl mesh. Date of surgery: 11/28/2018. Surgeon: German Palomares MD. 2. Culture of abdominal abscess, Staphylococcus aureus. HISTORY: Chato had fluid collection over his mesh. He presented to have removal of that seroma on 11/28/2018, in procedure turned to laparotomy with the above procedure. Chato had no operative complications. On postoperative day #1, IV was decreased. He was started on a full liquid diet. On 11/30/2018, he had delayed primary closure, was not passing any flatus, was started on bowel stimulation and clear liquid diet. He was on IV antibiotics to cover the culture report. He currently was on meropenem and Zyvox. On 12/01/2018, the meropenem was discontinued and he continued on the Zyvox. He did have quite a bit in the way of cramping. He had not moved his bowels yet, was given additional stimulation. Oral intake was encouraged to be decreased and activity increased. On 12/02/2018, the sensitivities return and Zyvox was discontinued. He was started on Cipro IV. He was having less nausea, less bloating, and he did start having bowel movements. On 12/03/2018, IV infiltrated. He was started on oral Cipro and all oral medication. Diet was increased. Bowels were working without any difficulty. Pain was controlled. Activity good. Vital signs stable. He was able to be discharged to home on 12/04/2018. PHYSICAL EXAMINATION: GENERAL: Chato Mackenzie is a 33-year-old male. VITAL SIGNS: Height is 5 feet 10 inches, weight is 168 pounds. TPR is 99.2, 92, 16, blood pressure 139/85. HEENT: Negative. NECK: Supple. HEART: Regular rate and rhythm. LUNGS: Clear. ABDOMEN: Negative. Feng intact. Abdominal binder has been on. EXTREMITIES: Without peripheral edema. DISPOSITION: Discharged to home. CONDITION: Stable and improving. FOLLOWUP APPOINTMENT: Lyndsay Brown PA-C, on 12/09/2018 at 11 a.m. HOME MEDICATIONS: 1. Percocet 5/325 mg one tablet every 4 hours p.r.n. pain #42. 2. Cipro 500 mg oral twice daily #14. 3. Ibuprofen 600 mg q.6 hours p.r.n. pain #40. He is to resume his home medication of cannabinoids THC free, takes by mouth THC [employer] as directed. DIET: Usual diet as tolerated. Drink 8 to 10 glasses of water a day. ACTIVITY: Other activity as tolerated. No lifting greater than 10 pounds for 6 weeks. Driving: Do not drive for 1 week and while on pain medication. Shower/bathing: May shower. DISCHARGE INSTRUCTIONS: Notify provider if any fever, increased pain, swelling, redness, nausea, or vomiting. Keep site clean and dry. Wear abdominal binder for 6 weeks and then as tolerated. Use incentive spirometer 10 times every hour while awake.
--- NOTE | 2018-12-04 14:37 | OR ---
DATE OF PROCEDURE: 11/28/2018 PREOPERATIVE DIAGNOSIS: Abdominal wall potentially-infected seroma. POSTOPERATIVE DIAGNOSES: 1. Abdominal wall seroma with abscess communicating into intraabdominal location with associated infected intraperitoneal mesh. 2. Adherent small bowel through intraperitoneal mesh. 3. Focal area of necrosis of abdominal wall fascia adherent to infected mesh. OPERATIVE PROCEDURES: Exploratory laparotomy with, 1. Removal of intraperitoneal mesh (25678). 2. Reaming of fascia adherent to abdominal wall mesh (09714). 3. Drainage of subcutaneous extending into intraabdominal abscess (07565). 4. Small bowel resection (93292). 5. Placement of Vicryl mesh to displace viscera from abdominal and pelvic coon to limit recurrent adhesion formation (55110). ANESTHESIA: General. ASSISTANTS: Lyndsay Brown PA-C, and RASHID Arias. INDICATION FOR PROCEDURE: This is a 33-year-old presenting with some blistering involving small seroma in the midline incision overlying some intraperitoneal mesh. Plan is to proceed with exploration of this area. If this turns out to be a simple seroma, that would be drained and closure accomplished. If it appears to be overtly infected, we would proceed with a full exploration and likely removal of the underlying mesh. Potential risks of the procedure including bleeding, infection, injury to underlying viscera, possible need for bowel resection; and the likelihood that, upon removal of the mesh, recurrent hernias would develop over time were all reviewed, and the patient wishes to proceed. DETAILS OF PROCEDURE: The patient was taken to the operating room and then placed in a supine position. After general endotracheal anesthesia was induced, the abdomen was prepped and draped. Initially, using a 20-gauge needle, the seroma fluid was aspirated, and this came back grossly purulent, indicating this was an infection extending likely from the mesh and upward into the abdominal wall. This area was then incised, and this did have an obvious direct communication to the underlying mesh, and a decision was then made to proceed with removal of the mesh at this time. Incision was eventually extended superiorly and inferiorly, and some above and below the umbilicus. Upon entering the peritoneal cavity, we initially started superior to the edge of the mesh. There was quite a bit in the way of extensive adhesions to the mesh, including the loop of small bowel. The mesh was eventually detached from the surrounding soft tissues, and the bowel coming and going from that area, which was a single loop, was divided proximally and distally with RIMMA staplers, as was the underlying mesentery. Of note, there was some necrotic fascia adjacent to the point of adherence of the mesh around the infected site, which was debrided, and this was sent along with the mesh and attached small bowel. At this point, further exploration revealed no further major problems. Small bowel continuity was accomplished with a [id number] enteroenterostomy with an internal firing of the Endo-RIMMA 60 mm stapler x2, and the common opening closed transversely with the RIMMA stapler as well. Angles anastomosed and mesenteric defect approximated with some 3-0 Vicryl stitch. The abdomen was then irrigated with meropenem-containing saline solution. We also added Zyvox to the antibiotic in the event that this would be a resistant Staph-type infection. Vicryl mesh was then placed underneath the abdominal wall between the viscera and the pelvic wall as well to limit recurrent adhesion formation. Single Yordy-Matta drain was then placed through a stab wound in the right abdomen and taken down from there into the pelvis. The midline fascia was then approximated with a #2 Vicryl stitch. Skin and subcutaneous tissue were obviously at high risk for a wound infection if primary closure was undertaken and were therefore packed open at this time with Iodoform gauze for a planned delayed primary closure in roughly 48 hours. The patient was taken to the recovery room in a satisfactory condition. [employer] assistant principal, Lyndsay Brown, played an essential role in assisting in this case, helping to position the patient, retract structures as needed, as well as suturing and cutting sutures when indicated. Her presence improved patient safety and decreased the operative time. German Palomares MD /[id number]
--- NOTE | 2018-12-04 14:37 | PN ---
DATE OF SERVICE: 12/03/2018 The patient has been afebrile with stable vital signs. No major problems were noted overnight. Plan will be to switch over to oral pain medication. He has moved his bowels several times during the night and feeling so much better. We will go with Percocet and ibuprofen ready for discharge home tomorrow. German Palomares MD /[id number]
--- NOTE | 2018-12-05 13:41 | OR ---
DATE OF PROCEDURE: 11/30/2018 PREOPERATIVE DIAGNOSIS: Open abdominal incision. POSTOPERATIVE DIAGNOSIS: Open abdominal incision. PROCEDURE: Delayed primary closure of open abdominal incision. ANESTHESIA: Local plus IV sedation. INDICATION FOR PROCEDURE: The patient is 48 hours status post an open abdominal surgery with a considerable contamination and a decision was made to proceed to leave the wound open to minimize chances of wound infection. Plan was to have a delayed primary closure today. Potential risks including bleeding and infection were discussed, and the patient wishes to proceed. DETAILS OF PROCEDURE: The patient was taken to the operating room, placed in a supine position. After IV sedation was administered, the operative dressing was taken down. Wound inspected and found to be clean. The abdomen was then prepped and draped and anesthetized with 1% lidocaine mixed with Marcaine and the incision closed with 2 layers of 3-0 and 4-0 Vicryl stitch deep and rancho for the skin. Bilateral transversus abdominis plane blocks had also been placed using ultrasound guidance. Dressing was applied. The patient was taken to the recovery room in satisfactory condition. German Palomares MD /[id number]
== END 2018-12-04 09:12 | disposition home or self-care (01) | DRG 908 ==
LOC: JP.SDSSCHI 07:49 → JP.SDS 07:49 → EDSTATUS 09:00 → JP.MS 12:40
PROVIDERS: ADMIT Surgery; ATTEND Surgery
PROC: 0W9F30Z Drainage of Abdominal Wall with Drainage Device, Percutaneous Approach (ICD-10-PCS; principal; 2018-11-28)
PROC: 0JD80ZZ Extraction of Abdomen Subcutaneous Tissue and Fascia, Open Approach (ICD-10-PCS; 2018-11-28)
PROC: 0DB80ZX Excision of Small Intestine, Open Approach, Diagnostic (ICD-10-PCS; 2018-11-28)
PROC: 0WPF0JZ Removal of Synthetic Substitute from Abdominal Wall, Open Approach (ICD-10-PCS; 2018-11-28)
PROC: 3E0M05Z Introduction of Adhesion Barrier into Peritoneal Cavity, Open Approach (ICD-10-PCS; 2018-11-28)
PROC: 0WQF0ZZ Repair Abdominal Wall, Open Approach (ICD-10-PCS; 2018-11-30)
DX: L76.34 Postprocedural seroma of skin and subcutaneous tissue following other procedure (principal); T85.79XA Infection and inflammatory reaction due to other internal prosthetic devices, implants and grafts, initial encounter; Y83.9 Surgical procedure, unspecified as the cause of abnormal reaction of the patient, or of later complication, without mention of misadventure at the time of the procedure; K66.0 Peritoneal adhesions (postprocedural) (postinfection); B95.61 Methicillin susceptible Staphylococcus aureus infection as the cause of diseases classified elsewhere; Z48.1 Encounter for planned postprocedural wound closure; K21.9 Gastro-esophageal reflux disease without esophagitis; J44.9 Chronic obstructive pulmonary disease, unspecified; F17.210 Nicotine dependence, cigarettes, uncomplicated; H54.7 Unspecified visual loss; F12.90 Cannabis use, unspecified, uncomplicated
CPT/HCPCS: 36415; 80053; 85027; 87070; 87075; 87077; 87186; 87205; 88304; 88307; 94762; A9270-GY; C1781; C9113; J0131; J0171; J0330; J0461; J0690; J0744; J1100; J1170; J1200; J2001; J2020; J2185; J2250; J2405; J2704; J2710; J2765; J2795; J3010; J3410; J3490; J7042; J7050

== ENCOUNTER 2023-10-12 15:51 | Inpatient (IN) | payer MEDICAID ==
[2023-10-12] MEDS ORDERED: Sodium Chloride 0.9% 10 ML Syringe FLUSH PRN (16:31)
[2023-10-12 16:44] LABS: BASOPHILS ABSOLUTE AUTO 0.06 K/uL (0.00-0.10); BASOPHILS PERCENT AUTO 0.5 % (0.1-1.3); EOSINOPHILS ABSOLUTE AUTO 0.12 K/uL (0.00-0.40); HEMATOCRIT 40.5 % (38.4-49.7); HEMOGLOBIN 14.1 g/dL (12.9-16.9); IMMATURE GRAN ABSOLUTE AUTO 0.09 K/uL (0.00-0.23); IMMATURE GRAN PERCENT AUTO 0.7 % (0.0-0.7); LYMPHOCYTES ABSOLUTE AUTO 2.47 K/uL (0.8-3.3); MEAN CORPUSCULAR HEMOGLOBIN 30.8 pg (31.6-35.5); MEAN CORPUSCULAR HGB CONC 34.8 g/dL (31.6-35.5); MEAN CORPUSCULAR VOLUME 88.4 fL (81.4-99.0); MONOCYTES ABSOLUTE AUTO 1.07 K/uL (0.20-0.90); MONOCYTES PERCENT AUTO 8.7 % (3.3-12.6); NEUTROPHILS ABSOLUTE AUTO 8.53 K/uL (1.0-7.6); NEUTROPHILS PERCENT AUTO 69.1 % (40.0-78.1); PLATELET COUNT,PLT 428 K/uL (130-375); RED BLOOD CELL COUNT 4.58 M/uL (4.14-5.76); WHITE BLOOD CELL COUNT,WBC 12.3 K/uL (3.2-11.0)
[2023-10-12 16:49] LABS: APPEARANCE,URINE CLEAR (CLEAR); BILIRUBIN,URINE NEGATIVE (NEGATIVE); COLOR,URINE YELLOW (YELLOW); GLUCOSE,URINE NEGATIVE (NEGATIVE); KETONES,URINE NEGATIVE (NEGATIVE); LEUKOCYTE ESTERASE,URINE NEGATIVE (NEGATIVE); NITRITE,URINE NEGATIVE (NEGATIVE); OCCULT BLOOD,URINE NEGATIVE (NEGATIVE); PROTEIN,URINE NEGATIVE (NEGATIVE); UROBILINOGEN,URINE 0.2 EU/dL (0.2-1.0)
[2023-10-12 16:56] LABS: AMORPHOUS SEDIMENT,URINE NOT SEEN; BACTERIA,URINE RARE; EPITHELIAL CELLS,URINE RARE; MUCUS,URINE RARE; RBC,URINE NOT SEEN (0-5); WBC,URINE 0-5 (0-5)
[2023-10-12 17:00] LABS: C-REACTIVE PROTEIN 2.67 mg/dL (<0.50); CALCIUM 8.5 mg/dL (8.5-10.1); EST CRCL DRUG DOSING (CG) 102.4 mL/min; POTASSIUM,K 3.4 mmol/L (3.6-5.2)
[2023-10-12 17:18] LABS: ANION GAP 13.4 mmol/L (5.0-14.0)
[2023-10-12 17:29] LABS: CORONAVIRUS COVID-19 NAA NEGATIVE (NEGATIVE); INFLUENZA A NAA NEGATIVE (NEGATIVE); INFLUENZA B NAA NEGATIVE (NEGATIVE); RESPIRATORY SYNCYTIAL VIR NAA NEGATIVE (NEGATIVE)
[2023-10-12] MEDS: Sodium Chloride 0.9% 1,000 ML IV SCH (17:39)
[2023-10-12] MEDS: Piperacillin/Tazobactam 3.375 GM in Sodium Chloride 0.9% 50 ML IV SCH ×3 (17:40→22:49)
[2023-10-12] MEDS: Ketorolac 30 MG/ML SDV IVPUSH ONE (17:40)
[2023-10-12] MEDS ORDERED: diphenhydrAMINE 50 MG/ML SDV IVPUSH PRN (18:20)
[2023-10-12] MEDS ORDERED: Benzocaine/Cetylpyridinium/Menthol Lozenge MUCMEM PRN (18:20)
[2023-10-12] MEDS ORDERED: Promethazine 25 MG/ML SDV IM PRN (18:20)
[2023-10-12] MEDS ORDERED: hydrOXYzine HCL 100 MG/2 ML SDV IM PRN (18:20)
[2023-10-12] MEDS ORDERED: Nicotine Polacrilex 2 MG Gum CHEW PRN (20:40)
[2023-10-12] MEDS: Ketorolac 15 MG/ML SDV IVPUSH SCH (21:01)
[2023-10-12] MEDS: Nicotine 14 MG/24 Hr Patch TRDERM SCH (21:05)
[2023-10-13] MEDS: HYDROmorphone 0.5 MG/0.5 ML Syringe IM ONE (01:50)
[2023-10-13] MEDS ORDERED: HYDROmorphone 0.5 MG/0.5 ML Syringe IVPUSH PRN (03:40)
[2023-10-13 04:23] LABS: BASOPHILS ABSOLUTE AUTO 0.06 K/uL (0.00-0.10); BASOPHILS PERCENT AUTO 0.4 % (0.1-1.3); EOSINOPHILS ABSOLUTE AUTO 0.24 K/uL (0.00-0.40); EOSINOPHILS PERCENT AUTO 1.7 % (0.0-5.4); HEMATOCRIT 40.9 % (38.4-49.7); HEMOGLOBIN 13.8 g/dL (12.9-16.9); IMMATURE GRAN ABSOLUTE AUTO 0.12 K/uL (0.00-0.23); IMMATURE GRAN PERCENT AUTO 0.9 % (0.0-0.7); LYMPHOCYTES ABSOLUTE AUTO 2.59 K/uL (0.8-3.3); LYMPHOCYTES PERCENT AUTO 18.6 % (11.4-47.7); MEAN CORPUSCULAR HEMOGLOBIN 30.5 pg (31.6-35.5); MEAN CORPUSCULAR HGB CONC 33.7 g/dL (31.6-35.5); MEAN CORPUSCULAR VOLUME 90.3 fL (81.4-99.0); MONOCYTES ABSOLUTE AUTO 1.48 K/uL (0.20-0.90); MONOCYTES PERCENT AUTO 10.6 % (3.3-12.6); NEUTROPHILS ABSOLUTE AUTO 9.44 K/uL (1.0-7.6); NEUTROPHILS PERCENT AUTO 67.8 % (40.0-78.1); PLATELET COUNT,PLT 438 K/uL (130-375); RED BLOOD CELL COUNT 4.53 M/uL (4.14-5.76); WHITE BLOOD CELL COUNT,WBC 13.9 K/uL (3.2-11.0)
[2023-10-13] MEDS: Methylphenidate 10 MG Tab PO SCH (08:17)
[2023-10-13] MEDS ORDERED: Piperacillin/Tazobactam/Dext 3.375 GM in Premix Bag 1 BAG IV SCH (11:00)
[2023-10-13] MEDS: Piperacillin/Tazobactam/Dext 3.375 GM in Premix Bag 1 BAG IV SCH (11:33)
[2023-10-13] MEDS: Acetaminophen 325 MG Tab PO PRN (16:38)
[2023-10-13] MEDS: Ketorolac 15 MG/ML SDV IVPUSH PRN (16:39)
[2023-10-13] MEDS: METHYLPHENIDATE 18 MG PO SCH (20:42)
[2023-10-14 04:43] LABS: BASOPHILS ABSOLUTE AUTO 0.08 K/uL (0.00-0.10); BASOPHILS PERCENT AUTO 0.6 % (0.1-1.3); EOSINOPHILS ABSOLUTE AUTO 0.31 K/uL (0.00-0.40); EOSINOPHILS PERCENT AUTO 2.2 % (0.0-5.4); HEMATOCRIT 38.2 % (38.4-49.7); HEMOGLOBIN 12.9 g/dL (12.9-16.9); IMMATURE GRAN PERCENT AUTO 0.7 % (0.0-0.7); LYMPHOCYTES ABSOLUTE AUTO 3.36 K/uL (0.8-3.3); LYMPHOCYTES PERCENT AUTO 24.4 % (11.4-47.7); MEAN CORPUSCULAR HEMOGLOBIN 30.1 pg (31.6-35.5); MEAN CORPUSCULAR HGB CONC 33.8 g/dL (31.6-35.5); MEAN CORPUSCULAR VOLUME 89.3 fL (81.4-99.0); MONOCYTES ABSOLUTE AUTO 1.39 K/uL (0.20-0.90); MONOCYTES PERCENT AUTO 10.1 % (3.3-12.6); NEUTROPHILS ABSOLUTE AUTO 8.54 K/uL (1.0-7.6); PLATELET COUNT,PLT 445 K/uL (130-375); RED BLOOD CELL COUNT 4.28 M/uL (4.14-5.76); WHITE BLOOD CELL COUNT,WBC 13.8 K/uL (3.2-11.0)
[2023-10-14] MEDS: D5 1/2 NS w/ 20 mEq/L KCl 1,000 ML IV SCH (17:02)
[2023-10-15] MEDS: Iopamidol 612 MG/ML 100 ML Bottle IV SCH (11:12)
[2023-10-15] MEDS: Sodium Chloride 0.9% 10 ML Syringe FLUSH PRN (11:12)
[2023-10-15] MEDS: Sodium Chloride 0.9% 100 ML IV SCH (11:12)
[2023-10-15] MEDS ORDERED: Flumazenil 0.1 MG/ML 5 ML MDV IVPUSH PRN (13:35)
[2023-10-15] MEDS ORDERED: Naloxone 0.4 MG/ML SDV IVPUSH PRN (13:35)
[2023-10-15 14:17] LABS: INR 1.2; PROTHROMBIN TIME 11.8 sec (9.2-10.6)
[2023-10-15] MEDS: Midazolam 1 MG/ML 2 ML SDV IVPUSH ONE (15:07)
[2023-10-15] MEDS: fentaNYL 100 MCG/2 ML SDV IVPUSH ONE (15:08)
[2023-10-15] MEDS: Lidocaine 1% 50 ML MDV INJECT ONE (15:19)
[2023-10-15] MEDS: Sodium Chloride 0.9% 1,000 ML IV SCH (15:42)
[2023-10-16 06:28] LABS: HEMATOCRIT 41.7 % (38.4-49.7); HEMOGLOBIN 14.1 g/dL (12.9-16.9); MEAN CORPUSCULAR HEMOGLOBIN 30.1 pg (31.6-35.5); MEAN CORPUSCULAR HGB CONC 33.8 g/dL (31.6-35.5); MEAN CORPUSCULAR VOLUME 89.1 fL (81.4-99.0); RED BLOOD CELL COUNT 4.68 M/uL (4.14-5.76); WHITE BLOOD CELL COUNT,WBC 9.6 K/uL (3.2-11.0)
[2023-10-16 06:58] LABS: ANION GAP 12.5 mmol/L (5.0-14.0); CREATININE 1.1 mg/dL (0.8-1.3); EST CRCL DRUG DOSING (CG) 93.09 mL/min; POTASSIUM,K 3.5 mmol/L (3.6-5.2)
[2023-10-16] MEDS: Potassium Chloride 10 MEQ in Premix Bag 1 BAG IV SCH (08:33)
[2023-10-16] MEDS: Potassium Chloride 20 MEQ Tab.ER PO ONE (16:35)
[2023-10-17 11:27] VITALS: BP 110/64; PULSE 67
== END 2023-10-17 12:30 | disposition home or self-care (01) | DRG 392 ==
LOC: JP.ED 15:51 → JP.MS 18:20
PROVIDERS: ADMIT Registered Nurse; ATTEND Hospitalist
PROC: 0W9J3ZX Drainage of Pelvic Cavity, Percutaneous Approach, Diagnostic (ICD-10-PCS; principal; 2023-10-12)
DX: K57.20 Diverticulitis of large intestine with perforation and abscess without bleeding (principal); K21.9 Gastro-esophageal reflux disease without esophagitis; J44.9 Chronic obstructive pulmonary disease, unspecified; F90.9 Attention-deficit hyperactivity disorder, unspecified type; Z91.040 Latex allergy status; Z91.030 Bee allergy status; Z79.899 Other long term (current) drug therapy; Z87.81 Personal history of (healed) traumatic fracture; Z98.890 Other specified postprocedural states; Z11.52 Encounter for screening for COVID-19; Z90.49 Acquired absence of other specified parts of digestive tract; Z87.891 Personal history of nicotine dependence
CPT/HCPCS: 0241U; 36415; 49406; 49406-26; 74177; 74177-26; 80048; 81001; 84132; 85025; 85027; 85610; 86140; 87070; 87075; 87077; 87186; 87205; 88112; 88305; 88312; 96365; 96375; 99222; 99232; 99238; 99284; 99285-25; A9270-GY; C1729; J1885; J2001; J2250; J2543; J3010; J3480; J3490; J7030; Q9967

== ENCOUNTER 2023-12-29 19:09 | Emergency (ER) | payer MEDICAID ==
[2023-12-29 19:27] LABS: BASOPHILS ABSOLUTE AUTO 0.04 K/uL (0.00-0.10); BASOPHILS PERCENT AUTO 0.2 % (0.1-1.3); EOSINOPHILS ABSOLUTE AUTO 0.02 K/uL (0.00-0.40); EOSINOPHILS PERCENT AUTO 0.1 % (0.0-5.4); HEMATOCRIT 42.5 % (38.4-49.7); HEMOGLOBIN 15.1 g/dL (12.9-16.9); IMMATURE GRAN ABSOLUTE AUTO 0.06 K/uL (0.00-0.23); IMMATURE GRAN PERCENT AUTO 0.3 % (0.0-0.7); LYMPHOCYTES ABSOLUTE AUTO 1.28 K/uL (0.8-3.3); LYMPHOCYTES PERCENT AUTO 6.8 % (11.4-47.7); MEAN CORPUSCULAR HGB CONC 35.5 g/dL (31.6-35.5); MEAN CORPUSCULAR VOLUME 87.3 fL (81.4-99.0); MONOCYTES PERCENT AUTO 5.3 % (3.3-12.6); NEUTROPHILS PERCENT AUTO 87.3 % (40.0-78.1); PLATELET COUNT,PLT 393 K/uL (130-375); RED BLOOD CELL COUNT 4.87 M/uL (4.14-5.76); WHITE BLOOD CELL COUNT,WBC 18.8 K/uL (3.2-11.0)
[2023-12-29 19:47] LABS: A/G RATIO 0.7 (1.2-2.2); ALANINE AMINOTRANSFERASE,ALT 34 U/L (12-78); ALBUMIN 3.6 g/dL (3.4-5.0); ALKALINE PHOSPHATASE 79 U/L (46-116); ANION GAP 16.6 mmol/L (5.0-14.0); ASPARTATE AMNIOTRANSFERASE,AST 35 U/L (15-37); BILIRUBIN TOTAL 0.8 mg/dL (0.2-1.0); BLOOD UREA NITROGEN,BUN 10 mg/dL (7-18); C-REACTIVE PROTEIN 11.98 mg/dL (<0.50); CALCIUM 9.5 mg/dL (8.5-10.1); CARBON DIOXIDE,CO2 24 mmol/L (21-32); CHLORIDE,CL 94 mmol/L (100-108); ESTIMATED GFR 98 mL/min (>60); GLUCOSE RANDOM 109 mg/dL (74-106); POTASSIUM,K 3.6 mmol/L (3.6-5.2); PROTEIN TOTAL,TP 8.6 g/dL (6.4-8.2); SODIUM,NA 131 mmol/L (140-148)
[2023-12-29 20:34] LABS: CORONAVIRUS COVID-19 NAA NEGATIVE (NEGATIVE); INFLUENZA A NAA NEGATIVE (NEGATIVE); INFLUENZA B NAA NEGATIVE (NEGATIVE); RESPIRATORY SYNCYTIAL VIR NAA NEGATIVE (NEGATIVE)
[2023-12-29] MEDS: Sodium Chloride 0.9% 1,000 ML IV SCH (21:42)
[2023-12-29] MEDS: cefTRIAXone 2 GM in Sodium Chloride 0.9% 50 ML IV ONE (21:43)
[2023-12-29] MEDS: Ondansetron 4 MG/2 ML SDV IVPUSH ONE (21:45)
[2023-12-29] MEDS: Ketorolac 15 MG/ML SDV IVPUSH ONE (21:46)
[2023-12-29] MEDS: Azithromycin 250 MG Tab PO ONE (21:46)
[2023-12-30 01:05] LABS: LACTIC ACID 0.9 mmol/L (0.4-2.0)
[2023-12-30] MEDS ORDERED: Melatonin 3 MG Tab PO PRN (01:53)
[2023-12-30] MEDS ORDERED: Ondansetron 4 MG Tab.DIS PO PRN (01:53)
[2023-12-30] MEDS ORDERED: Sennosides/Docusate Sodium 50-8.6 MG Tab PO PRN (01:53)
[2023-12-30] MEDS ORDERED: Magnesium Hydroxide 400 MG/5 ML Susp 30 ML Cup PO PRN (01:53)
[2023-12-30] MEDS ORDERED: Ondansetron 4 MG/2 ML SDV IV PRN (01:53)
[2023-12-30] MEDS: Sodium Chloride 0.9% 1,000 ML IV SCH (02:37)
[2023-12-30] MEDS: Acetaminophen 325 MG Tab PO PRN (02:38)
[2023-12-30] MEDS ORDERED: Nicotine Polacrilex 2 MG Gum CHEW PRN (04:31)
[2023-12-30 05:37] LABS: HEMATOCRIT 38.9 % (38.4-49.7); HEMOGLOBIN 13.6 g/dL (12.9-16.9); MEAN CORPUSCULAR HEMOGLOBIN 30.7 pg (31.6-35.5); MEAN CORPUSCULAR VOLUME 87.8 fL (81.4-99.0); RED BLOOD CELL COUNT 4.43 M/uL (4.14-5.76); WHITE BLOOD CELL COUNT,WBC 16.2 K/uL (3.2-11.0)
[2023-12-30 05:47] VITALS: BP 115/71; PULSE 89
[2023-12-30 05:50] LABS: CALCIUM 8.5 mg/dL (8.5-10.1); EST CRCL DRUG DOSING (CG) 102.4 mL/min; POTASSIUM,K 3.4 mmol/L (3.6-5.2)
[2023-12-30 05:52] LABS: ANION GAP 14.4 mmol/L (5.0-14.0)
[2023-12-30] MEDS: Methylphenidate 10 MG Tab PO SCH (08:12)
[2023-12-30] MEDS: Lactobacillus Rhamnosus GG (Probiotic) Cap PO SCH (08:12)
[2023-12-30] MEDS: Potassium Chloride 20 MEQ Tab.ER PO ONE (08:42)
[2023-12-30] MEDS ORDERED: cefTRIAXone 1 GM in Sodium Chloride 0.9% 50 ML IV SCH (21:00)
[2023-12-30] MEDS ORDERED: Azithromycin 250 MG Tab PO SCH (21:00)
== END 2023-12-30 11:47 | disposition home or self-care (01) ==
LOC: JP.ED 19:09 → JP.MS 12-30 01:13
PROVIDERS: ADMIT Registered Nurse; ATTEND Hospitalist
DX: J18.9 Pneumonia, unspecified organism (principal); Z86.16 Personal history of COVID-19; Z79.899 Other long term (current) drug therapy; Z91.040 Latex allergy status; Z91.030 Bee allergy status
CPT/HCPCS: 0241U; 36415; 71046; 80048; 80053; 83605; 83690; 85025; 85027; 86140; 87040; 96365; 96375; 99222; 99238; 99285; A9270; J0696; J1885; J2405; J3490; J7030; G0378

== ENCOUNTER 2025-08-06 07:32 | Day surgery (SDC) | payer MEDICAID ==
[2025-08-06] MEDS ORDERED: Propofol 200 MG/20 ML SDV ONE ×2 (07:50→09:10)
[2025-08-06] MEDS ORDERED: Midazolam 1 MG/ML 2 ML SDV ONE (07:50)
[2025-08-06] MEDS ORDERED: fentaNYL 100 MCG/2 ML SDV ONE (07:50)
[2025-08-06] MEDS: Lactated Ringers 1,000 ML IV SCH (08:21)
[2025-08-06 10:40] VITALS: BP 109/68; PULSE 61
== END 2025-08-06 10:41 | disposition home or self-care (01) ==
LOC: JP.SDS 07:32
PROVIDERS: ATTEND Surgery
DX: D12.2 Benign neoplasm of ascending colon (principal); K44.9 Diaphragmatic hernia without obstruction or gangrene; K21.9 Gastro-esophageal reflux disease without esophagitis; Z91.030 Bee allergy status; Z91.040 Latex allergy status; Z79.899 Other long term (current) drug therapy
CPT/HCPCS: 00813; 43239; 45380; J2250; J2704; J3010; J7120; 88305